=== PATIENT | female | born 1985 | race African-American/Black ===

== ENCOUNTER 2018-01-29 10:47 | Emergency (ER) | payer OTHER ==
[~2018-01-29] VITALS: Ht 162.6 cm; Wt 68.0 kg
[2018-01-29 10:52] VITALS: Ht 162.6 cm; Wt 68.0 kg
[2018-01-29 11:29] LABS: CALCIUM 8.8 mg/dL (8.5-10.1); CARBON DIOXIDE 27.9 mmol/L (21-32); CHLORIDE SERUM 108 mmol/L (98-107); CREATININE SERUM 0.9 mg/dL (0.6-1.0); GFR1 > 60 mL/min; GLUCOSE SERUM 83 mg/dL (74-106); POTASSIUM SERUM 4.3 mmol/L (3.5-5.1); SODIUM SERUM 144 mmol/L (136-145)
[2018-01-29 11:33] LABS: ALBUMIN 4.3 g/dL (3.4-5.0); ALKALINE PHOSPHATASE 50 U/L (46-116); ALT/SGPT 30 U/L (14-59); AST/SGOT 17 U/L (15-37); BILIRUBIN TOTAL 1.48 mg/dL (0.20-1.00); LIPASE 123 IU/L (73-393); TOTAL PROTEIN, SERUM 8.1 g/dL (6.4-8.2)
[2018-01-29 11:34] LABS: BASOPHIL % 1.3 % (0-2); PLATELET COUNT 352 x10^3mcL (130-400); RED CELL DISTRIBUTION WIDTH 13.7 % (11.5-14.5)
[2018-01-29 13:07] VITALS: BP 118/74
== END 2018-01-29 13:07 | disposition home or self-care (01) ==
LOC: ED 10:47
PROVIDERS: Emergency Medicine
DX: R10.13 Epigastric pain (principal); R11.2 Nausea with vomiting, unspecified
CPT/HCPCS: Q0162